=== PATIENT | female | born 1995 | race Caucasian/White ===

== ENCOUNTER 2022-07-03 15:10 | Inpatient (IN) ==
[~2022-07-03 15:10] MED LIST: *HR* Labetalol 20 MG/4 ML SYRINGE IVP ONE; *HR* Labetalol 20 MG/4 ML SYRINGE IVP PRN; Calcium Gluconate 1,000 MG/10 ML VIAL IVP PRN; Magnesium Sulf 20 gm/SW 500mL 4 GM/100 ML BAG IV ONE; Ringers Solution, Lactated 1,000 ML ONE
[2022-07-03] MEDS ORDERED: Betamethasone Acet/SodPhos 30 MG/5 ML VIAL IM SCH (15:15)
[2022-07-03] MEDS ORDERED: Magnesium Sulf 20 gm/SW 500mL 20 GM/500 ML IV.SOLN IVC SCH ×2 (15:15→21:41)
[2022-07-03] MEDS ORDERED: *HR* Labetalol 20 MG/4 ML SYRINGE IVP PRN (15:18)
[2022-07-03] MEDS ORDERED: *HR* Labetalol 20 MG/4 ML SYRINGE IVP ONE (15:34)
[2022-07-03] MEDS ORDERED: *HR* Midazolam HCl 2 MG/2 ML VIAL ONE (16:41)
[2022-07-03] MEDS ORDERED: EPHEDrine sulfate 50 MG/10 ML VIAL IVP ONE (16:41)
[2022-07-03] MEDS ORDERED: *HR* FentaNYL (PF) 100 MCG/2 ML VIAL ONE (16:41)
[2022-07-03] MEDS ORDERED: *HR* Morphine Sulfate/PF 10 MG/10 ML AMPUL ONE (16:41)
[2022-07-03] MEDS ORDERED: Ondansetron 4 MG/2 ML VIAL ONE (16:42)
[2022-07-03 17:33] LABS: Protein/Creatinine Ratio,Urine 0.95 mg/mg (0.00-0.20)
[2022-07-03 17:35] LABS: Basophils % 0.3 %; Eosinophils % 0.3 %; Hematocrit 36.6 % (35.3-44.9); Hemoglobin 11.8 g/dL (11.5-15.4); Immature Granulocytes % 1.1 % (0-4); Lymphocytes # 2.1 K/mcL (0.6-4.6); Lymphocytes % 21.7 %; Mean Corpuscular HGB Conc 32.2 g/dL (31.6-35.5); Mean Corpuscular Hemoglobin 26.2 pg (28.0-33.3); Mean Corpuscular Volume 81.2 fL (83.0-100.0); Monocytes # 0.3 K/mcL (0.0-1.3); Monocytes % 2.8 %; Neutrophils # 7.1 K/mcL (1.6-8.9); Platelet Count 213 K/mcL (140-400); Red Blood Count 4.51 M/mcL (3.82-4.97); Red Cell Distribution Width 14.9 % (11.5-14.5); Segmented Neutrophils % 73.8 %; White Blood Count 9.6 K/mcL (4.3-11.1)
[2022-07-03 17:43] LABS: Alanine Aminotransferase 24 Units/L (7-52); Aspartate Amino Transferase 29 Units/L (13-39); BUN/Creatinine Ratio 13 (6-26); Blood Urea Nitrogen 11 mg/dL (6-20); Lactate Dehydrogenase 199 Units/L (140-271); Uric Acid 7.6 mg/dL (2.3-7.6)
[2022-07-03] MEDS ORDERED: Metoclopramide 10 MG/2 ML VIAL ONE (18:13)
[2022-07-03] MEDS ORDERED: Famotidine 20 MG/2 ML VIAL ONE (18:14)
[2022-07-03] MEDS ORDERED: OXYTOCIN/RINGERS LACTATE 10 UNIT/166.6 ML BAG IVC ONE (18:15)
[2022-07-03] MEDS ORDERED: CeFAZolin 2,000 MG/120 ML BAG IVPB ONE (18:15)
[2022-07-03] MEDS ORDERED: Famotidine 20 MG/2 ML VIAL IVP ONE (18:15)
[2022-07-03] MEDS ORDERED: Metoclopramide 10 MG/2 ML VIAL IVP ONE (18:15)
[2022-07-03] MEDS ORDERED: Oxytocin 30 UNIT/503 ML BAG IVC SCH (18:15)
[2022-07-03] MEDS ORDERED: Ringers Solution, Lactated 1,000 ML IVC SCH (18:15)
[2022-07-03] MEDS ORDERED: Acetaminophen IV 1,000 MG/100 ML BAG IVPB ONE (18:55)
[2022-07-03] MEDS ORDERED: Ketorolac 30 MG/ML VIAL ONE (18:56)
[2022-07-03] MEDS ORDERED: *HR* Oxytocin 10 UNIT/ML VIAL ONE (19:02)
[2022-07-03] MEDS ORDERED: Acetaminophen 325 MG TABLET PO SCH (21:41)
[2022-07-03] MEDS ORDERED: *HR* OxyCODONE Immed Rel 5 MG TABLET PO PRN (21:41)
[2022-07-03] MEDS ORDERED: Ondansetron 4 MG/2 ML VIAL IVP PRN (21:41)
[2022-07-03] MEDS ORDERED: Simethicone 80 MG TAB.CHEW PO PRN (21:41)
[2022-07-03] MEDS ORDERED: Calcium Gluconate 1,000 MG/10 ML VIAL IVP PRN (21:41)
[2022-07-03] MEDS ORDERED: Metoclopramide 10 MG/2 ML VIAL IVP PRN (21:41)
[2022-07-03] MEDS ORDERED: Ibuprofen 600 MG TABLET PO SCH (22:42)
[2022-07-04] MEDS ORDERED: Prenatal Vit/FA 1 EACH TABLET PO SCH (09:00)
== END 2022-07-03 23:59 | disposition other institution (70) | DRG 786 ==
LOC: 1NENULAB
PROVIDERS: ADMIT Obstetrics & Gynecology; ATTEND Obstetrics & Gynecology